=== PATIENT | female | born 1970 | race Caucasian/White ===

== ENCOUNTER → 2017-03-06 | Outpatient (CLI) | payer MEDICAID, SELFPAY | PROVIDERS: Family Provider Internal Medicine Adolescent Medicine; Referring Provider Internal Medicine; Visit Provider Internal Medicine | DX: I25.10 Atherosclerotic heart disease of native coronary artery without angina pectoris (principal); I10 Essential (primary) hypertension; E78.5 Hyperlipidemia, unspecified; K21.9 Gastro-esophageal reflux disease without esophagitis | CPT/HCPCS: 36415; 80061; 80076; 94060; 94640; 94727; 94729 ==

== ENCOUNTER → 2017-09-07 06:55 | Outpatient (CLI) | payer MEDICAID, SELFPAY ==
--- NOTE | 2017-09-07 07:00 | CA_ITS ---
PROCEDURE: 2-D M-mode and color Doppler study INDICATIONS FOR THE TEST: Chest pain + COPD Heart Murmur Tobacco Smoking+ Palpitations Fatigue Syncope Edema Hypertension+Diabetes Mellitus Rheumatic Fever SOB+HOGAN Obesity Hyperlipidemia+ Family History HD Additional History CAD, GERD, ABN EKG, CATH PATIENT INFORMATION HEIGHT: 64 WEIGHT:207 GENDER: Female B/P:117/60 2-D/M-MODE INTERPRETATION: 2-D MEASUREMENTS OBSERVED VALUES IN CMS Right Ventricular Dimension (RVDd) 1.9 Interventricular Septum (Thickness)(IVsd) 1.3 Left Ventricular Internal Dimensions(LVIDd) 5.0 Left Ventricular Posterior Wall (Thickness)(LVPWd) 1.2 Aortic Root 3.0 Aortic Cusp Separation 2.0 Left Atrial Dimensions (LAD) 3.5 2D 1. Left atrium is mildly enlarged, left ventricle is normal size, mild concentric left ventricular hypertrophy, visually estimated ejection fraction 55% with no obvious regional wall motion abnormality. 2. The right atrium and right ventricle are normal size and contractility. 3. The aortic valve is minimally thickened and fibrosed. 4. The mitral and tricuspid valve are structurally normal. 5. The pulmonic valve is poorly visualized. 6. No significant pericardial effusion noted. DOPPLER INTERROGATION: Doppler interrogation of the aortic, mitral and tricuspid valvular presence of moderate to severe, mild mitral and tricuspid regurgitation. Tricuspid regurgitant jet velocity is insufficient for calculation of the right ventricular systolic pressure, diastolic parameters are inconclusive. CONCLUSION: 1. Mildly enlarged left atrium, normal left ventricular size, mild concentric left ventricular hypertrophy, visually estimated ejection fraction 55% with no obvious regional wall motion abnormality, diastolic parameters are inconclusive. 2. Thickened and calcified aortic valve without aortic stenosis, there is moderate to severe aortic insufficiency present, if clinically indicated transesophageal echocardiogram is recommended for further evaluation. 3. Mild mitral and tricuspid regurgitation 4. No significant pericardial effusion noted.
--- NOTE | 2017-09-07 07:00 | NM_ITS ---
History and Indications: Hypertension, hyperlipidemia, aortic insufficiency, shortness of breath. Procedure: Patient exercised on Corby protocol 9 minutes and 31 seconds, resting heart rate was 62 bpm resting blood pressure 121/53, with exercise maximum heart rate achieved was 80 bpm which is equal to 68% of the maximum predicted heart rate and a blood pressure was 180/84. Test was started due to shortness of breath. Patient has adequate exercise capacity achieved 7mets of workload on treadmill, the blood pressure response to exercise was adequate. Patient did not achieve the target heart rate. Electrocardiogram: Resting electrocardiogram showed sinus rhythm, with exercise there is less than 1.[address] segment depression noted from the baseline EKG. The EKG portion of the exercise Myoview is nondiagnostic as patient did not achieve the target heart rate. Cardiac stress and resting SPECT images: Cardiac stress and rest SPECT images were obtained using technetium 99 Myoview 32.2 mCi at stress and 10.4 mCi at rest, gated SPECT further analysis of segmental wall motion and calculation of the ejection fraction also done. Cardiac stress and rest images show uniform myocardial activity without any segmental perfusion abnormality, computer derived ejection fraction is 63% with no obvious regional wall motion abnormality. Right ventricle is normal size and contractility. Conclusion: 1. The EKG portion of the exercise Myoview is nondiagnostic as patient did not achieve the target heart rate. Patient has adequate exercise capacity achieved 7mets of workload on treadmill, the blood pressure response to exercise was adequate. Test was stopped due to shortness of breath. 2. No obvious scintigraphic evidence of reversible ischemia seen, computer derived ejection fraction is 63% with no obvious regional wall motion abnormality, right ventricle is normal size and contractility.
--- NOTE | 2017-09-07 10:09 | HMH.ITSHM ---
cloidogrel metoprolol atorvastatin amlodipine pantoprazole aspirin isosorbide
== END ==
PROVIDERS: Family Provider Internal Medicine Adolescent Medicine; PCP Internal Medicine Adolescent Medicine; Visit Provider Internal Medicine
DX: R07.9 Chest pain, unspecified (principal); R06.00 Dyspnea, unspecified; I11.9 Hypertensive heart disease without heart failure; I44.0 Atrioventricular block, first degree; R53.83 Other fatigue
CPT/HCPCS: 78452; 93017; 93306; A9502

== ENCOUNTER → 2017-11-29 13:13 | Outpatient (CLI) | payer MEDICAID, SELFPAY ==
[2017-11-29 15:26] LABS: Alanine Aminotransferase 19 U/L (12-78); Albumin Level 3.4 gm/dL (3.4-5.0); Alkaline Phosphatase 136 U/L (46-116); Anion Gap 13.7 mEq/L (5-15); Aspartate Amino Transferase 6 U/L (15-37); Bilirubin,Total 0.3 mg/dL (0.2-1.0); Blood Urea Nitrogen 12 mg/dL (7-18); Calcium 8.7 mg/dL (8.5-10.1); Carbon Dioxide 25 mmol/L (21.0-32.0); Chloride 109 mmol/L (98-107); Chol/HDL Ratio 4.2 (1-3.5); Cholesterol 109 mg/dL (140-200); Creatinine,Serum 0.69 mg/dL (0.55-1.02); Estimated Glomerular Filt Rate 91 ml/min (>60); GFR (African American) 110 ML/MIN (>60); Globulin 3.3 gm/dl (1.3-3.2); Glucose 103 mg/dL (74-106); HDL Cholesterol 26 mg/dL (29-89); LDL Cholesterol 61 mg/dL (0-130); Potassium 3.7 mmoL/L (3.5-5.1); Sodium 144 mmol/L (136-145); Total Protein,Serum 6.7 gm/dL (6.4-8.2); Triglycerides 111 mg/dL (30-200); VLDL Cholesterol 22 mg/dL (0-40)
--- NOTE | 2017-11-29 15:42 | MM_ITS ---
MM Dig screening mamm BI w/CAD CAD Screening COMPARISON: Analog mammograms 01/14/2009 INDICATION: There is a history of breast cancer patient's 2 maternal aunts. TECHNIQUE: Standard CC and MLO images were obtained. R2 CAD reviewed. FINDINGS: Moderate scattered fibroglandular densities are seen throughout both breasts. There is no suspicious lesion and there are no suspicious microcalcifications. IMPRESSION: Fibrofatty parenchyma with no suspicious lesion seen BI-RADS Category: 1 Negative RECOMMENDED FOLLOW-UP: 1YR - 1 YEAR FOLLOW-UP (A letter has been sent to the patient regarding results of the study.)
== END ==
PROVIDERS: Family Provider Internal Medicine Adolescent Medicine; PCP Internal Medicine Adolescent Medicine; Visit Provider Nurse Practitioner Family
DX: Z12.31 Encounter for screening mammogram for malignant neoplasm of breast (principal); I10 Essential (primary) hypertension; E78.5 Hyperlipidemia, unspecified
CPT/HCPCS: 36415; 77067; 80053; 80061

== ENCOUNTER → 2018-05-22 11:13 | Outpatient (CLI) | payer MEDICAID, SELFPAY ==
[2018-05-22 12:13] LABS: Basophils # 0.1 K/mm3 (0-0.2); Basophils % 1.2 % (0.1-2.0); Eosinophils # 0.3 K/mm3 (0.0-0.4); Eosinophils % 2.6 % (0.1-12.0); Hematocrit 40.9 % (37.0-47.0); Hemoglobin 13.4 g/dL (12.2-16.2); Lymphocytes # 3.2 K/mm3 (0.7-4.5); Lymphocytes % 29.1 % (10-50); Mean Corpuscular HGB Conc 32.7 g/dL (31.8-35.4); Mean Corpuscular Hemoglobin 29.8 pg (27.0-31.2); Mean Corpuscular Volume 91.3 fl (81-99); Mean Platelet Volume 7.4 fl (7.4-10.4); Monocytes # 0.6 K/mm3 (0.1-1.0); Monocytes % 5.5 % (1.7-9.3); Neutrophils # 6.7 K/mm3 (1.8-7.8); Neutrophils % 61.6 % (37.0-80.0); Platelet Count 431 K/mm3 (142-424); Red Blood Count 4.48 M/mm3 (4.20-5.40); Red Cell Distribution Width 14.7 % (11.5-17.5)
[2018-05-22 13:01] LABS: Chol/HDL Ratio 4.3 (1-3.5); Cholesterol 142 mg/dL (140-200); HDL Cholesterol 33 mg/dL (29-89); LDL Cholesterol 86 mg/dL (0-130); Triglycerides 116 mg/dL (30-200); VLDL Cholesterol 23 mg/dL (0-40)
== END ==
PROVIDERS: Visit Provider Nurse Practitioner Family
DX: Z00.00 Encounter for general adult medical examination without abnormal findings (principal); I25.10 Atherosclerotic heart disease of native coronary artery without angina pectoris; I10 Essential (primary) hypertension; E78.5 Hyperlipidemia, unspecified
CPT/HCPCS: 36415; 80061; 85025

== ENCOUNTER → 2019-12-17 08:36 | Outpatient (CLI) | payer OTHER, SELFPAY ==
--- NOTE | 2019-12-17 08:36 | US_ITS ---
PROCEDURE: US TRANSVAGINAL CLINICAL INDICATION: US T/V- Pelvic Pain COMPARISON: No exams were available for comparison FINDINGS: UTERUS: 8cm x 7cmx 6cm with a combined endometrial thickness of 6.7mm LEFT OVARY: [id number] with a volume of 8.9ml. RIGHT OVARY: [id number] with a volume of 1.8ml. The uterus is retroverted. Endometrial thickness is 7 mm. A 2 cm fibroid is present along the uterine fundus posteriorly. An additional fibroid is noted along the posterior aspect of the uterus measuring 4.5 cm. There is a 2 cm left ovarian cyst. No cul-de-sac fluid. IMPRESSION: Uterine fibroids. Dictated by: Lucien Norton MD 12/17/2019 17:01 Lucien Norton MD in OV 12/17/2019 17:01
== END ==
PROVIDERS: PCP Family Medicine; Visit Provider Obstetrics & Gynecology
DX: R10.2 Pelvic and perineal pain (principal)
CPT/HCPCS: 76830

== ENCOUNTER → 2020-01-14 10:11 | Outpatient (CLI) | payer OTHER, SELFPAY ==
[2020-01-14 10:47] LABS: Basophils # 0.1 K/mm3 (0-0.2); Basophils % 0.7 % (0.1-2.0); Eosinophils # 0.3 K/mm3 (0.0-0.4); Eosinophils % 2.5 % (0.1-12.0); Hematocrit 40.8 % (37.0-47.0); Hemoglobin 12.6 g/dL (12.2-16.2); Lymphocytes # 2.7 K/mm3 (0.7-4.5); Mean Corpuscular HGB Conc 30.8 g/dL (31.8-35.4); Mean Corpuscular Hemoglobin 28.2 pg (27.0-31.2); Mean Corpuscular Volume 91.5 fl (81-99); Mean Platelet Volume 7.7 fl (7.4-10.4); Monocytes # 0.5 K/mm3 (0.1-1.0); Monocytes % 3.6 % (1.7-9.3); Neutrophils # 9.4 K/mm3 (1.8-7.8); Neutrophils % 72.2 % (37.0-80.0); Platelet Count 384 K/mm3 (142-424); Red Blood Count 4.46 M/mm3 (4.20-5.40); Red Cell Distribution Width 15.2 % (11.5-17.5)
[2020-01-14 11:52] LABS: Alanine Aminotransferase 17 U/L (12-78); Albumin Level 3.8 g/dl (3.5-5.0); Albumin/Globulin Ratio 1.4 (1.1-1.8); Alkaline Phosphatase 125 U/L (38-126); Anion Gap 10.3 mEq/L (5-15); Aspartate Amino Transferase 20 U/L (14-36); Bilirubin,Total 0.3 mg/dl (0.2-1.3); Blood Urea Nitrogen 16 mg/dl (7-17); Calcium 9.1 mg/dl (8.4-10.2); Carbon Dioxide 26 mmol/L (22.0-30.0); Chloride 110 mmol/L (98-107); Estimated Glomerular Filt Rate 89 ml/min (>60); GFR (African American) 108 ML/MIN (>60); Globulin 2.8 g/dL (1.3-3.2); Glucose 113 mg/dl (74-100); Potassium 4.3 mmoL/L (3.5-5.1); Sodium 142 mmol/L (136-145); Total Protein,Serum 6.6 g/dl (6.3-8.2)
[2020-01-14 15:10] LABS: Coronavirus 19 IgG Antibody Negative (Negative); Coronavirus 19 IgM Antibody Negative (Negative)
[2020-01-14 20:35] LABS: Urine Pregnancy, HCG Qual. Negative (Negative)
[2020-01-14 20:38] LABS: Amphetamine/Metha Screen,Urine Negative ng/ml (<1000); Barbiturates Screen,Urine Negative ng/ml (<200)
[2020-01-14 20:39] LABS: Benzodiazepines Screen,Urine Negative ng/ml (<200)
[2020-01-14 20:40] LABS: Cannabinoid Screen,Urine Negative ng/ml (<50); Cocaine Screen,Urine Negative ng/ml (<300)
[2020-01-14 20:41] LABS: Methadone Screen,Urine Negative ng/ml (<300)
[2020-01-14 20:42] LABS: Opiate Screen,Urine Negative ng/ml (<300); Phencyclidine Screen,Urine Negative ng/ml (<25)
== END ==
PROVIDERS: Visit Provider Obstetrics & Gynecology
DX: Z01.818 Encounter for other preprocedural examination (principal)
CPT/HCPCS: 36415; 80053; 80305; 81025; 85025; 86328

== ENCOUNTER 2020-01-16 09:09 | Inpatient (IN) | payer OTHER, SELFPAY ==
[2020-01-15 10:59] VITALS: BMI 33.3
[2020-01-16] VITALS (28 sets, daily range): BP systolic 82–132; BP diastolic 38–83; PULSE 60–82; RESP 13–20; TEMP 36.1–43; O2SAT 89–97
[2020-01-16 10:00] LABS: POC Glucose,Bedside 124 (70-110)
--- NOTE | 2020-01-16 11:45 | HMH.ANESCL ---
[facility] Anesthesia Checklist - Patient Identification Patient Identification: Arm Band, Verbal (Name & ) - Structural Data Admitted From: Home Planned Operative Procedure/s: JELLY, possible BSO Consent for Planned Operative Procedure(s) Verified: Yes Verified Documents: Surgical Consent, History and Physical - NPO Status Verified Time NPO: 00:00 - Chart Verification Results Verified: CBC, BMP - Additional verifications Fingerstick Blood Glucose: 124 Patient : No Anesthesia Reactions: No Hx Blood Transfusions: No Blood Transfusion Reaction: No - Airway Assessment C-Spine Mobility Assessed: Yes (MP 2, TMD 3, full neck ROM) TMJ Mobility Assessed: Yes Dentition: Edentulous - Neurological Assessment Level of Consciousness: Awake, Alert, Appropriate, Follows Commands Hx Seizures: No Numbness or tingling in extremities: No - Anesthesia Plan Anesthesia Risk discussed: Yes Anesthesia Plan: Verified ASA Class: III Anesthesia Type: General [facility] History I have reviewed the patient's past medical history: Yes Medical History: Reports:: Anxiety, Cancer (skin), Depression, Gastroesophageal Reflux Disease(GERD), Hyperlipidemia, Hypertension, Valvular Heart Disease Denies:: Diabetes Mellitus Type 1, Diabetes Mellitus Type 2, Internal Pacemaker, MRSA, Seizures *Have you ever received a pneumonia vaccine?: No *Have you received a flu vaccine this season?: No Other Medical History: Reports: Arthritis, Hypothyroidism. Denies: Blood Transfusion Reaction Comment:: Angina Anesthesia experience/problems:: No prior complications Other Surgeries: Yes: Cardiac Catheterization, Tubal Ligation, Other. No: Pacemaker Amputation: No Fractures: No - *Social History Last grade of school completed: GED Smoking Status: Current every day smoker Tobacco Type: cigarettes # Packs/Day (cigarettes): 1 #Yrs smoked (if former smoker): 33 Alcohol Intake: never Alcohol Intake Frequency:: other Substance Use Type: denies use *Occupational Status:: employed Housing: house *Travel in the last 8 weeks: None - Psychiatric History Pschychiatric History:: Reports:: Depression Family Hx:: Coronary Artery Disease, Heart Attack, Cancer, Diabetes, Thyroid Disorder, Stroke, Hypertension, Hyperlipidemia, Asthma, Alcoholism, Substance abuse
--- NOTE | 2020-01-16 12:58 | HMH.PHAINT ---
MEDICATION RECONCILIATION COMPLETED ON PATIENT USING EXTERNAL FILL HISTORY FROM PHARMACY. -HENRIQUE TYLER, KINGD
--- NOTE | 2020-01-16 14:26 | P.PN_ITS ---
[facility] Anesthesia Record Part I Intake, IV Amount: 1,300 Estimated blood loss (mL): 200 Urine output (mL): 200 Blood Products used (#): none Blood Pressure: 112/83 SaO2: 92 Pulse Rate: 71 Respiratory Rate: 14 Temperature: 98.8 F Patient is:: Awake, Drowsy, Stable Stable to PACU at:: 14:22
--- NOTE | 2020-01-16 15:20 | HMH.OPNOTE ---
Date of procedure: 01/16/20 Pre-op Diagnosis:: 1. Pelvic pain 2. Heavy menstrual bleeding 3. Enlarged uterus 4. Uterine fibroid Post-op Diagnosis:: same Procedure performed:: Abdominal supracervical hysterectomy Surgeon:: Sheryl Temple MD Ground Support Equipment Mechanic(s):: Lorna Yates DISTRICT TRAFFIC CHIEF:: Darron Flor Anesthesia: GETA Estimated blood loss (mL): 200 Operative findings:: moderate pelvic adhesions enlarged uterus normal fallopian tubes and ovaries Operative note:: The patient was taken to the operating room and general anesthesia was administered without difficulty. She was prepped and draped in the supine position. A Pfannenstiel skin incision was made approximately 2 cm above the pubic symphysis with a scalpel and carried down to the underlying layer of fascia. The fascia was incised in the midline and extended laterally sharply. The rectus muscles were sharply dissected off the fascia and in the midline. The peritoneum was turned and sharply, with good visualization of the underlying structures. The peritoneal incision was extended bluntly. A survey of the patient's pelvis and abdomen revealed moderate adhesions extending between bowel, uterus, ovaries and pelvic sidewall. Approximately 20 minutes was spent in dissection of adhesions before retractor was able to be placed. At this time, the patient was placed in Trendelenburg and a [place] retractor was placed in the abdomen; the bowel was packed with moist laparotomy sponges. A double tooth tenaculum was placed on the uterine fundus and the uterus was elevated out of the pelvis. No fibroids or other visible uterine lesions were noted. The round ligaments were identified and transected and suture-ligated. The anterior lip of the broad ligament was dissected medially on both sides and the bladder flap was created digitally. The posterior leaf of the broad ligament was dissected until the ureters were able to be identified on either side and noted to be free of the forthcoming adnexal pedicles. Infundibulopelvic ligaments were doubly clamped transected and suture ligated on either side, medial to the ovaries, with excellent hemostasis noted. The uterine arteries were skeletonized on either side, and were clamped, transected and suture ligated with excellent hemostasis. The bladder flap was further bluntly dissected off the lower uterine segment with excellent hemostasis and without injury to the bladder. Several additional rounds of clamp placement was made on either side, and eventually the uterus was amputated from the cervix. The cervix was oversewn with interrupted 0-vicryl. The pelvis was irrigated with warm sterile water, and cleared of all clot and debris. All pedicles were reexamined and remained hemostatic. All instruments were removed from the patient's abdomen. The peritoneum was closed with 2-0 Vicryl in a running fashion. The fascia was closed with 0 Vicryl in a running fashion. The skin was closed with desean. The patient tolerated the procedure well; sponge/lap/needle and instrument counts were correct ?2. She was taken to the recovery room awake in stable condition. Estimated blood loss: 200cc. Condition: stable Disposition: PACU Specimens:: uterus Complications:: None
--- NOTE | 2020-01-16 15:26 | P.CONPHA_ITS ---
[facility] Pharmacy VTE Monitoring - Patient Demographics Admission date: 01/16/20 Report Date: 01/16/20 Time: 15:26 Allergies/Adverse Reactions: Patient Allergies Sulfa (Sulfonamide Antibiotics) [SULFA (SULFONAMIDE ANTIBIOTICS)] Allergy (Intermediate, Verified 01/16/20 09:50) hives; from head to toe Height: 1.65 m Weight: 90.718 kg - Prophylaxis VTE Prophylaxis Ordered?: Yes Types of VTE Prophylaxis: IPCS Thigh High, Pharmacological Pharmacologic Type: Enoxaparin
--- NOTE | 2020-01-16 16:30 | PC.NURSE ---
pt sleeping soundly, awakens easily. encouraged to use IS with RN at this time
[2020-01-16 16:37] LABS: Hematocrit 36.2 % (37.0-47.0); Hemoglobin 12.1 g/dL (12.2-16.2)
[2020-01-16 17:25] LABS: Microscopic, Urine URINE MICROSCOPIC (MICROSCOPIC)
[2020-01-16 17:32] LABS: Appearance,Urine CLEAR (Clear); Bilirubin,Urine Negative (Negative); Blood, Urine Negative (Negative); Color,Urine YELLOW (Yellow); Glucose,Urine (UA) Negative (Negative); Ketones,Urine Negative (Negative); Leukocyte Esterase,Urine Negative (Negative); Nitrate,Urine Negative (Negative); Protein,Urine Negative (Negative); Specific Gravity, Urine 1.025 (1.005-1.030); Urobilinogen,Urine 0.2 EU/dl (0.2)
[2020-01-16 17:51] LABS: Bacteria,Urine Trace /lpf; Mucus,Urine 2+ /lpf; Squamous Epithelial Cell,Urine Occasional #/hpf (0-5)
--- NOTE | 2020-01-16 18:13 | SUR.PHASEI ---
Patient entered PACU at 1422 with BP of 112/83; pre op BP was 122/66. Patient's O2 saturation was 96% in pre op, in PACU patient's O2 saturation at a high of 92% on 5L O2. Patient switched to simple mask, did not improve O2 saturation. Head of bed had been raised to 90 degree position with simple mask, no significant increase in O2. At 1427 patient's BP decreased to 94/42 and continued to decrease until 1440 when it was 87/47, then at 1452 it was 85/41. During this time the BP cuff was moved to different parts of the left arm and then the cuff size was increased. The cuffs were then moved to the right arm as well. The fluids were opened up; the patient is not a CHF patient, this did not improve the BP. The head of the bed was lowered with the fluids running open, this did not increase the BP. The patient was positioned in several different positions,but this did not make any significant difference in the BP levels. At 1510 the GRASS FARMER that was taking care of this patient was called by the SCREENER AND BLENDER OPERATOR. The scenario was explained, including the fact that the patient was alert and oriented. the GRASS FARMER stated that the patient should be transported up to OB at this time. At 1518 report was called to OB, but the OB RN did not want to accept this patient r/t the BP and O2 saturation although the GRASS FARMER was satisfied when hearing the entire situation. It was agreed between the OB and SCREENER AND BLENDER OPERATOR that a breathing treatment would be ordered. The order was given and the patient received her breathing treatment starting at 1526. After coughing a few times the patient's O2 saturation increased to 98% on the 5l, but less than five minutes later the patient's O2 had decreased to 93% on the 5L and continued to decrease to 91%. At this time the patient was introduced to the incentive spirometer and instructed on it's use. As the patient was using the spirometer, another call was placed to OB for report, at 1537. The OB RN did not want to take report again unless Dr Temple was called and she gave her consent for transfer. At 1541 Dr Temple was called by the SCREENER AND BLENDER OPERATOR for consent to transfer the patient to OB. Dr Temple stated she would order an H/H to be drawn on the floor and that the patient should be transferred at this time. Patient was transported via bed to OB at 1547.
--- NOTE | 2020-01-16 19:05 | PC.NURSE ---
REPORT RECEIVED FROM Fly NEGRON RN AT THIS TIME.
--- NOTE | 2020-01-16 20:10 | PC.NURSE ---
PT ASSESSED AT THIS TIME. BILATERAL LUNG SOUNDS CLEAR. NO EDEMA NOTED. BOWEL SOUNDS HYPOACTIVE X4 QUADS. PT STATES THAT SHE HAS NOT PASSED ANY GAS OR HAD A BM. DENIES ANY PAIN AT THIS TIME. STATES PAIN WITH MOVEMENT AND AMBULATION. PT IS SITTING UP IN CHAIR WATCHING TV. IV ABX ANCEF 1 GM STARTED AT THIS TIME. INDWELLING CATHETER BAG EMPTIED AT THIS TIME WITH 1500 ML OUT OF CLEAR STRAW COLOR URINE. PT DENIES ANY FURTHER NEEDS AT THIS TIME. WILL CONTINUE TO OBSERVE.
--- NOTE | 2020-01-16 21:18 | PC.NURSE ---
PT GIVEN SCHEDULED MEDICATIONS AT THIS TIME. LOVENOX ADMINISTERED IN LLQ OF ABD. PT TOLERATED WELL. REFILLED ICE PITCHER AND GIVEN JELLO AT THIS TIME WILL CONTINUE TO OBSERVE.
--- NOTE | 2020-01-16 21:43 | P.PN_ITS ---
[facility] Anesthesia Record Part II Discharge Time: 15:26 Destination: Obstetric PACU nurse assessment reviewed?: Yes Patient Condition:: Good Anesthesia Complications:: None Swallowing reflex intact?: Yes Cyanosis?: No Blood Pressure: 90/42 Pulse Rate: 69 Temperature: 97.7 F Mental Status: Alert & Oriented Pain level:: 0 Nausea and/or vomitting:: None Intake, IV Amount: 0
--- NOTE | 2020-01-16 23:22 | PC.NURSE ---
PT GIVEN POPSICLE AT THIS TIME. DENIES ANY FURTHER NEEDS. WILL CONTINUE TO OBSERVE. CATH EMPTIED AT THIS TIME 800 ML OUT
[2020-01-17] VITALS (7 sets, daily range): BP systolic 117–149; BP diastolic 53–72; PULSE 71–94; RESP 16–20; TEMP 36.5–36.9; O2SAT 93–97
--- NOTE | 2020-01-17 00:24 | PC.NURSE ---
PT UP AND AMBULATED TO BR TO BRUSH HAIR AND TEETH AT THIS TIME. PT TOLERATED AMBULATION WELL WITH STAND BY ASSIST. WILL CONTINUE TO OBSERVE.
--- NOTE | 2020-01-17 03:30 | PC.NURSE ---
PT MEDICATED PER [facility] AT THIS TIME. PT STATES PAIN 3/10 ON VERBAL SCALE R/T INCISION. PT DENIES ANY FURTHER NEEDS.
--- NOTE | 2020-01-17 04:07 | PC.NURSE ---
INDWELLING CATHETER REMOVED AT THIS TIME. PT TOLERATED WELL. 10 ML PULLED OUT OF BALLOON. 1400 OF URINE NOTED IN BAG. REASSESSED AT THIS TIME. NO CHANGES NOTE. INCISIONAL DRESSING HAS SO BREAK THROUGH BLEEDING AROUND THE BOTTOM. WILL CONTINUE TO OBSERVE.
--- NOTE | 2020-01-17 05:38 | PC.NURSE ---
PT AMBULATED TO BR AND WAS ABLE TO VOID 500 ML. SITTING UP IN CHAIR. DENIES ANY FURTHER NEEDS AT THIS TIME. WILL CONTINUE TO OBSERVE.
[2020-01-17 07:54] LABS: Basophils % 0.1 % (0.1-2.0); Hematocrit 36.4 % (37.0-47.0); Hemoglobin 12.1 g/dL (12.2-16.2); Lymphocytes # 1.3 K/mm3 (0.7-4.5); Lymphocytes % 6.8 % (10-50); Mean Corpuscular HGB Conc 33.4 g/dL (31.8-35.4); Mean Corpuscular Volume 89.9 fl (81-99); Mean Platelet Volume 7.7 fl (7.4-10.4); Monocytes # 0.8 K/mm3 (0.1-1.0); Monocytes % 4.1 % (1.7-9.3); Neutrophils # 17.4 K/mm3 (1.8-7.8); Platelet Count 347 K/mm3 (142-424); Red Blood Count 4.05 M/mm3 (4.20-5.40); Red Cell Distribution Width 15.9 % (11.5-17.5); White Blood Count 19.6 K/mm3 (4.8-10.8)
[2020-01-17 08:01] LABS: MANUAL DIFFERENTIAL MANUAL DIFFERENTIAL (MANUAL DIFF)
[2020-01-17 09:31] LABS: Lymphocytes % 11 % (10-50); Monocytes % 3 % (2-9); Neutrophils % 85 % (42-76); Platelet Estimate Normal; RBC Morphology Normal; Total Cells Counted 100
--- NOTE | 2020-01-17 09:31 | PC.NURSE ---
0915 Incision care performed at this time. Dressing removed, LTV incision with desean intact, clean and dry without any s/s infection. Incision cleaned with 1/2 strength hydrogen peroxide and sterile water, tolerated well by pt. Incision left CTE TEACHER. Pt provided with verbal education on incision care and surgical site infections, V/U.
--- NOTE | 2020-01-17 11:20 | HMH.ACPN2 ---
Internal Medicine - PN: Subj *Date: 01/17/20 *Time: 11:20 Interval history: She is doing very well. She is 1 day postop from a total abdominal hysterectomy. She feels well. Her pain is well controlled with just Toradol. She is not taking any narcotics. She denies any chest pain, calf tenderness or shortness of breath. She is voiding and eating. She is drinking and ambulating. Exam Vital signs and Labs for Last 24 Hours: Temp Pulse Resp BP Pulse Ox 98.0 F 80 16 133/61 96 01/17/20 08:00 01/17/20 08:00 01/17/20 08:00 01/17/20 08:00 01/17/20 08:00 Laboratory Results - last 24 hr 01/16/20 16:30: Hgb 12.1 L, Hct 36.2 L 01/16/20 : Urine Color Yellow, Urine Appearance Clear, Urine pH 6.0, Ur Specific Luana 1.025, Urine Protein Negative, Urine Glucose (UA) Negative, Urine Ketones Negative, Urine Blood Negative, Urine Nitrate Negative, Urine Bilirubin Negative, Urine Urobilinogen 0.2, Ur Leukocyte Esterase Negative, Urine RBC 3-5, Urine WBC 3-5, Ur Squamous Epith Cells Occasional, Urine Bacteria Trace, Urine Mucus 2+ 01/17/20 07:32: WBC 19.6 H D, RBC 4.05 L, Hgb 12.1 L, Hct 36.4 L, MCV 89.9, MCH 30.0, MCHC 33.4, RDW 15.9, Plt Count 347, MPV 7.7, Neut % (Auto) 89.0 H, Lymph % (Auto) 6.8 L, [place] % (Auto) 4.1, Eos % (Auto) 0.0 L, Baso % (Auto) 0.1, Neut # (Auto) 17.4 H, Lymph # (Auto) 1.3, [place] # (Auto) 0.8, Eos # (Auto) 0.0, Baso # (Auto) 0.0, Total Counted 100, Neutrophils % (Manual) 85 H, Band Neutrophils % 1.0, Lymphocytes % (Manual) 11, Monocytes % (Manual) 3, Platelet Estimate Normal, RBC Morphology Normal I & O for Last 24 hours: Intake & Output 01/14/20 01/15/20 01/16/20 11/07/20 11:59 11:59 11:59 11:59 Intake Total 2140 / 2140 Output Total 4850 / 4850 Balance -2710 / -2710 Weight 200 lb - Constitutional no acute distress - *Routine HEENT Exam Head: Present: normocephalic Eye: Present: EOMI, PERRL ENT: Present: mucous membranes moist - *Routine Respiratory Exam Present: CTA bilaterally. Absent: accessory muscle use - *Routine Cardiovascular Exam Present: RRR. Absent: murmur - *Routine Abdominal Exam Present: soft, normoactive bowel sounds. Absent: tenderness - *Routine Extremities Exam Absent: cyanosis, clubbing, edema - *Routine Skin Exam Present: warm. Absent: rash Assessment and Plan (1) History of tubal ligation Status: Acute Category: Surgical Code(s): Z98.51 - Tubal ligation status (2) Uterine fibroid Status: Acute Category: Medical Code(s): D25.9 - Leiomyoma of uterus, unspecified - Assessment and plan all Dx Assessment and Plan for all problems:: She is doing very well postoperatively. Her hemoglobin is stable. She is improving daily. We will plan to send her home in 48 hours.
--- NOTE | 2020-01-17 16:44 | PC.NURSE ---
1635 RN reassessment completed at this time. Pt has rested in intervals this shift, has had good pain control with scheduled IV toradol, not requesting any narcotics this shift for pain. Abdomen soft and mildly tender with BS active in all quads. Pt is tolerating a cardiac diet well with no N/V. Pt reports passing flatus. LTV incision is C/D/I, with no s/s infection. Lung sounds are diminished but CTA. No s/s respiratory distress, no SOA. SaO2 93% on room air, pt previously in mid 90's, will recheck. Productive cough continues with thin, clear sputum. Pt reports voiding without difficulty. Pt has ambulated in room several times this shift and spent majority of the shift sitting up in the chair. Pt has demonstrated correct use of incentive spirometer. IV patent and infusing LR at 50 ml/hr per MD order. Pt denies any needs/concerns at this time, bed locked and in lowest position with side rails up x2, call light within reach.
--- NOTE | 2020-01-17 18:55 | PC.NURSE ---
Pt is up to the shower, IV covered, towels and wash cloths provided to pt. Bed linens changed by staff.
--- NOTE | 2020-01-17 19:50 | PC.NURSE ---
PT INCISION IS OPEN TO AIR,JUAN RAMON INTACT,CLEANSED INCISION WITH 1/2 STRENGHT PEROXIDE AND STERILE WATER.PT TOLERATED WELL.
[2020-01-18] VITALS (7 sets, daily range): BP systolic 125–147; BP diastolic 60–75; PULSE 72–81; RESP 18–20; TEMP 36.5–37.1; O2SAT 91–96
--- NOTE | 2020-01-18 00:30 | PC.NURSE ---
PT WAS SLEEPING SOUNDLY.SATURATION LEVEL ON ROOM AIR WAS 89,HAD PT TAKE A COUPLE DEEP BREATHS AND SAT.LEVEL ONLY WENT TO 91%.2 LITERS OXYGEN APPLIED PER NASAL CANNULA AND TOLD PT WOULD COME AN CHECK SAT.LEVEL IN ABOUT 30 MINS.PT V/U
--- NOTE | 2020-01-18 01:05 | PC.NURSE ---
RECHECKED PT SATURATION LEVEL WITH 2 LITERS OF OXYGEN PER NASAL CANNULA AND IT WAS 94-95%TOLD PT WAS GOING TO LEAVE OXYGEN ON UNTIL MORNING AND SHE V/U
--- NOTE | 2020-01-18 03:45 | PC.NURSE ---
PT HAS SLEPT WELL TONIGHT,LUNGS CLEAR THROUGHOUT,RESP.EVEN AND UNLABORED,PT HAS BEEN ABLE TO ACHIEVE A LEAST 1750 ON INCENTIVE SPIROMETER.SOME COUGHING WITH USE,SHE REPORTS SHE HAS BEEN COUGHING UP SOME MUCUS.INCISION OPEN TO AIR,JUAN RAMON INTACT.NORMAL BOWEL SOUNDS X4 QUADS,PT REPORTS PASSING FLATUS AND VOIDING WITHOUT DIFF.PT AFIBRILE.MAGDA TORADOL 30MG IVP IS ALL THAT PT HAS REQUIRED TONIGHT.
--- NOTE | 2020-01-18 08:51 | HMH.ACPN2 ---
Internal Medicine - PN: Subj *Date: 01/18/20 *Time: 08:51 Interval history: She is doing well this morning. She is eating and drinking and ambulating. She is taking Toradol for pain. She denies any shortness of breath or chest pain. She denies any calf tenderness. She has not had a bowel movement. Exam Vital signs and Labs for Last 24 Hours: Temp Pulse Resp BP Pulse Ox 97.7 F 81 18 138/68 95 01/18/20 08:00 01/18/20 08:00 01/18/20 08:00 01/18/20 08:00 01/18/20 08:00 Laboratory Results - last 24 hr 01/17/20 07:32: Total Counted 100, Neutrophils % (Manual) 85 H, Band Neutrophils % 1.0, Lymphocytes % (Manual) 11, Monocytes % (Manual) 3, Platelet Estimate Normal, RBC Morphology Normal I & O for Last 24 hours: Intake & Output 01/15/20 01/16/20 01/17/20 01/18/20 11:59 11:59 11:59 11:59 Intake Total 2140 / 2140 548 / 548 Output Total 4850 / 4850 1600 / 1600 Balance -2710 / -2710 -1052 / -1052 Weight 200 lb - Constitutional no acute distress - *Routine HEENT Exam Head: Present: normocephalic Eye: Present: EOMI, PERRL ENT: Present: mucous membranes moist - *Routine Abdominal Exam Present: soft, normoactive bowel sounds. Absent: tenderness Comments: Her incision is clean and dry. Assessment and Plan (1) History of tubal ligation Status: Acute Category: Surgical Code(s): Z98.51 - Tubal ligation status (2) Uterine fibroid Status: Acute Category: Medical Code(s): D25.9 - Leiomyoma of uterus, unspecified - Assessment and plan all Dx Assessment and Plan for all problems:: She is doing very well this morning. She says that she is urinating profusely and I told her we would slow her IV down to 25 cc an hour. She will be seen by Dr. Temple in the morning and I suspect she should be able to go home tomorrow.
--- NOTE | 2020-01-18 11:23 | PC.NURSE ---
0815 Incision care performed at time of tiedown operator. LTV incision noted with desean intact, clean and dry without any s/s infection. Incision cleaned with 1/2 strength hydrogen peroxide and sterile water, tolerated well by pt. Incision left RIBBON HAND.
--- NOTE | 2020-01-18 16:07 | PC.NURSE ---
1600 RN reassessment completed at this time. Pain has been well controlled this shift. Pt only taking scheduled toradol for pain management, reports pain as a 2 on a 0-10 scale at this time which is tolerable for her. LTV incision is KRISTINE with desean intact, no s/s infection. Lung sounds CTA but diminished, pt continues to report productive cough with thin mucus. No SOA, no s/s respiratory distress. Pt has been educated on importance of using incentive spirometer, v/u. Abd soft and nontender with BS active in all quads. Pt reports passing flatus this shift, no BM. Pt reports voiding without difficulty. Pt is tolerating a cardiac diet well, no N/V. VSS. Pt sitting up in bed at this time watching television and coloring, pt denies any needs/concerns. Will continue to monitor.
[2020-01-19] VITALS: BP 147/76; PULSE 71; RESP 18; TEMP 37.1; O2SAT 96
[2020-01-19 03:25] VITALS: BP 146/75; PULSE 66; RESP 18; TEMP 37.1; O2SAT 96
--- NOTE | 2020-01-19 03:44 | PC.NURSE ---
NO ACUTE CHANGES FROM PREVIOUS ASSESSMENT.LUNGS CLEAR TO ASCULTATE.NORMAL BOWEL SOUND X4 QUADS,PT REPORTS PASSING FLATUS AND VOIDING OK.INCISION OPEN TO AIR,JUAN RAMON INTACT.AFIBRILE.PT HAS NOT REQUIRED ANY PAIN MEDICINE.SHE HAS BEEN GETTING MAGDA DOSE OF TORADOL.SHE HAS SLEPT OFF AND ON THROUGHTOUT THE NIGHT
[2020-01-19 04:23] VITALS: BMI 35.9
[2020-01-19 08:10] VITALS: BP 137/72; PULSE 74; RESP 18; TEMP 36.7; O2SAT 99
--- NOTE | 2020-01-19 08:33 | PC.NURSE ---
0810 Incision care completed at time of night time babysitter. LTV is GATE SERVICES SUPERVISOR with desean intact, no s/s infection. Incision cleaned with 1/2 strength hydrogen peroxide and sterile water, tolerated well by pt.
--- NOTE | 2020-01-19 09:17 | HMH.DCSUM ---
General - General Admission date:: 01/16/20 Discharge date: 01/19/20 Hospital Course Hospital Course: Admitted for abdominal hysterectomy Postop course uneventful Progressed to regular diet Ambulating and voiding without difficulty Pain has been controlled with only NSAIDs and Tylenol Ready for discharge on POD #3 Objective Vital signs: Temp Pulse Resp BP Pulse Ox 98.0 F 74 18 137/72 99 01/19/20 08:10 01/19/20 08:10 01/19/20 08:10 01/19/20 08:10 01/19/20 08:10 Narrative: CONSTITUTIONAL: no acute distress HEENT: mucous membranes moist PULMONARY: breathing unlabored without audible wheezes CV: no tachycardia or visible JVD; normal LE peripheral pulses ABD: soft, ND; appropriately tender but no rebound/guarding SKIN: incision well approximated with no drainage, erythema or induration EXT: no edema LEs NEURO: alert/oriented, no altered mental status PSYCH: appropriate mood and demeanor without anxiety/depression DS: Diagnosis - Discharge Diagnosis (1) Uterine fibroid Status: Acute (2) History of tubal ligation Status: Acute (3) S/P hysterectomy Status: Acute Discharge Plan - Patient Discharge Instructions ACTIVITY: Continue current activity DIET: regular diet Additional Instructions: Resume Plavix and Aspirin 1 week postop - Follow up Plan Disposition: Home, [facility] Medications: Home Medications Medication Instructions Recorded Confirmed Type aspirin 81 mg tablet,delayed 81 mg PO DAILY /12/01/15/20 History release levothyroxine 50 mcg tablet 50 mcg PO DAILY 12/12/19 01/15/20 History Amlodipine Besylate [Amlodipine 10 mg PO DAILY 01/15/20 01/15/20 History 10mg Tab] Atorvastatin Calcium [Lipitor 80mg 80 mg PO DAILY 01/15/20 01/15/20 History Tablet*] Clopidogrel Bisulfate [Plavix 75mg 75 mg PO DAILY 01/15/20 01/15/20 History Tab] Isosorbide Mononitrate [Imdur 60mg 60 mg PO DAILY 01/15/20 01/16/20 History ER tablet] Metoprolol Tartrate 50 mg PO BID 01/15/20 01/15/20 History Pantoprazole Sodium [Protonix 40mg 40 mg PO HS 01/15/20 01/16/20 History tablet] Trazodone HCl 100 mg PO HS 01/15/20 01/16/20 History Venlafaxine HCl [Effexor XR 150mg] 150 mg PO DAILY 01/15/20 01/15/20 History Ketorolac Tromethamine [Toradol 10 mg PO Q6H #30 tab 01/19/20 Rx 10mg tablet] Oxycodone HCl [OxyIR 5mg tablet] 5 mg PO Q6 PRN #24 tablet 01/19/20 Rx Prescriptions/Medication Reconciliation: New Oxycodone HCl [OxyIR 5mg tablet] 5 mg PO Q6 PRN #24 tablet PRN Reason: Moderate To Severe Pain Ketorolac Tromethamine [Toradol 10mg tablet] 10 mg PO Q6H #30 tab Continued aspirin 81 mg tablet,delayed release 81 mg PO DAILY levothyroxine 50 mcg tablet 50 mcg PO DAILY Pantoprazole Sodium [Protonix 40mg tablet] 40 mg PO HS Metoprolol Tartrate 50 mg PO BID Isosorbide Mononitrate [Imdur 60mg ER tablet] 60 mg PO DAILY Venlafaxine HCl [Effexor XR 150mg] 150 mg PO DAILY Trazodone HCl 100 mg PO HS Clopidogrel Bisulfate [Plavix 75mg Tab] 75 mg PO DAILY Atorvastatin Calcium [Lipitor 80mg Tablet*] 80 mg PO DAILY Amlodipine Besylate [Amlodipine 10mg Tab] 10 mg PO DAILY - Problem Reconciliation Problems Reviewed?: Yes
--- NOTE | 2020-01-19 09:50 | PC.NURSE ---
[id number] Discharge education provided to pt, questions encouraged and answered. Pt is aware of follow up appointment with Dr. Temple.
--- NOTE | 2020-01-19 10:00 | PC.NURSE ---
1000 Pt escorted out of department via wheelchair to private vehicle for discharge home. Mask worn per COVID-19 policy.
== END 2020-01-19 10:00 | disposition home or self-care (01) | DRG 743 ==
LOC: OB 09:11
PROVIDERS: Admitting Provider Obstetrics & Gynecology; PCP Family Medicine; Visit Provider Obstetrics & Gynecology
PROC: 0UT90ZZ Resection of Uterus, Open Approach (ICD-10-PCS; CPT 58150; principal; 2020-01-16 10:45)
DX: D25.9 Leiomyoma of uterus, unspecified (principal); N80.0 Endometriosis of uterus; Z79.02 Long term (current) use of antithrombotics/antiplatelets; I11.9 Hypertensive heart disease without heart failure; I25.10 Atherosclerotic heart disease of native coronary artery without angina pectoris; I44.0 Atrioventricular block, first degree; E78.5 Hyperlipidemia, unspecified; Z72.0 Tobacco use; E03.9 Hypothyroidism, unspecified; Z88.2 Allergy status to sulfonamides; Z79.82 Long term (current) use of aspirin; Z79.899 Other long term (current) drug therapy
CPT/HCPCS: 58180; 36415; 80053; 80305; 81001; 81025; 82962; 85007; 85014; 85018; 85025; 86328; 94640; 94760; 94761; 96372; 96374; J2405

== ENCOUNTER → 2020-07-13 12:56 | Outpatient (CLI) | payer OTHER, SELFPAY ==
--- NOTE | 2020-07-13 12:57 | CA_ITS ---
APPROVED REPORT [employer] Developer: JEROME Laterality: Bilateral Study Quality: Good Indications: carotid bruit, CAD hx-AK Risk Factors Hypertension: CAD, Smoking Doppler Spectral Velocity Analysis ECA (R) 151.80/30.80 cm/s ECA (L) 136.90/15.00 cm/s dICA (R) 109.80/32.70 cm/s dICA (L) 98.80/31.40 cm/s Piedad (R) 88.60/25.00 cm/s Piedad (L) 91.30/29.90 cm/s pICA (R) 95.40/18.30 cm/s pICA (L) 74.10/22.40 cm/s dCCA (R) 78.00/17.30 cm/s dCCA (L) 70.00/18.20 cm/s pCCA (R) 103.70/23.50 cm/s pCCA (L) 121.40/27.90 cm/s Vert (R) 56.80/16.40 cm/s Vert (L) 62.10/18.70 cm/s ICA/CCA 1.39 ICA/CCA 1.41 Findings Duplex evaluation demonstrates stenosis of the right proximal internal carotid artery in the range of 20-49% with PSV <140 cm/sec, EDV <100 cm/sec, and IC/CC Ratio <4.0.Duplex evaluation demonstrates stenosis of the left proximal internal carotid artery in the range of 20-49% with PSV <140 cm/sec, EDV <100 cm/sec, and IC/CC Ratio <4.0. Duplex evaluation demonstrates antegrade flow of the bilateral Vertebral Arteries. Conclusion Duplex evaluation demonstrates stenosis of the right proximal internal carotid artery in the range of 20-49% with PSV <140 cm/sec, EDV <100 cm/sec, and IC/CC Ratio <4.0.Duplex evaluation demonstrates stenosis of the left proximal internal carotid artery in the range of 20-49% with PSV <140 cm/sec, EDV <100 cm/sec, and IC/CC Ratio <4.0. Duplex evaluation demonstrates antegrade flow of the bilateral Vertebral Arteries. Electronically signed by : Lucien Norton MD 07/13/2020 17:28:16
--- NOTE | 2020-07-13 12:57 | CA_ITS ---
APPROVED REPORT EXAM: Comprehensive 2D, Doppler, and color-flow Echocardiogram [facility]: Mary Fisher CRT Ht: 5 ft 5 in Wt: 203lbs BSA: 1.99 HR: 68 bpm BP: 166/78 mmHg Indications: SOA, CAD, Mumur, smoker, HTN,HLD, GERD 2D Dimensions LVOT 1.98 cm (M/F) 1.5-2.5 LA Volume 58.00 mL LA Volume Index 29.10 mL/m2 (M/F) 16-34 M-Mode Dimensions RVDd 2.58 cm (0.9-2.6) LA Diam 3.52 cm (1.9-4.0) LVDd 4.51 cm (3.5-5.7) Ao Diam 2.83 cm (2.0-3.7) LVDs 3.08 cm (3.5-5.7) IVSd 1.47 cm (0.6-1.1) PWd 0.64 cm (0.6-1.1) EF (Teich) 59.80% FS 31.70% EDV (Teich) 92.90 mL TAPSE 2.22 (<1.7) ESV (Teich) 37.30 mL LV Diastology E Decel Time 150.00 (160-240 msec) E/A Ratio 1.05 MED E' 8.40 (< 7 cm/sec) MED A' 10.30 cm/s E'/MED E' Ratio 9.73 (>14) LAT E' 14.20 (<10 cm/sec) LAT A' 8.80 cm/s E/LAT E' Ratio 5.75 (>14) Aortic Valve AI PHT 523.00 ms AO Peak GR. 10.00 mmHg Mitral Valve MV E Max Josué. 82.00 (40-130 cm/s) MV A Velocity 78.00 (40-130 cm/s) E/A Ratio 1.05 MV Decel. Time 150.00 (160-240 ms) MV PHT 44.00 ms Pulmonary Valve PV Peak Velocity 49.00 (50-150 cm/s) Tricuspid Valve TR P. Velocity 244.00 cm/s RAP Estimate 10.00 mmHg RVSP 33.80 mmHg Left Ventricle Left atrium is normal size, left ventricle is normal size, there is no concentric left ventricular hypertrophy, visually estimated ejection fraction 55% with no regional wall motion abnormality, diastolic parameters are within normal range. Right Ventricle Right atrium and right ventricle are normal size and contractility. Aortic Valve Aortic valve is minimally thickened and fibrosed, there is no aortic stenosis, there is mild aortic insufficiency. Mitral Valve Mitral valve is grossly normal, there is trace mitral regurgitation. Tricuspid Valve Tricuspid grossly normal, there is trace tricuspid regurgitation, tricuspid regurgitation jet velocity is inadequate for calculation of the right ventricular systolic pressure. Pulmonic Valve Pulmonic valve is poorly visualized. Great Vessels Aortic root is normal size. Pericardium No significant pericardial effusion noted. Conclusion 1. Normal left ventricular size, preserved left ventricular systolic function, visually estimated ejection fraction 55% with no regional wall motion abnormality, diastolic parameters are within normal range. 2. Thickened and calcified aortic valve without aortic stenosis, there is mild aortic insufficiency. 3. Trace mitral and tricuspid regurgitation. 4. No significant pericardial effusion noted. Electronically signed by : Christiano Hickey, 07/13/2020 19:00:15
== END ==
PROVIDERS: PCP Family Medicine; Visit Provider Internal Medicine Cardiovascular Disease
DX: R01.1 Cardiac murmur, unspecified (principal); I35.1 Nonrheumatic aortic (valve) insufficiency; I25.10 Atherosclerotic heart disease of native coronary artery without angina pectoris; I11.9 Hypertensive heart disease without heart failure; E78.49 Other hyperlipidemia
CPT/HCPCS: 93306; 93880

== ENCOUNTER → 2020-11-03 14:42 | Outpatient (CLI) | payer OTHER, SELFPAY | PROVIDERS: PCP Family Medicine; Visit Provider Nurse Practitioner Family | DX: I20.9 Angina pectoris, unspecified (principal); R00.2 Palpitations; R01.1 Cardiac murmur, unspecified; I35.1 Nonrheumatic aortic (valve) insufficiency; I11.9 Hypertensive heart disease without heart failure; E78.5 Hyperlipidemia, unspecified; Z72.0 Tobacco use | CPT/HCPCS: 93270 ==

== ENCOUNTER → 2020-11-05 08:09 | Outpatient (CLI) | payer OTHER, SELFPAY ==
--- NOTE | 2020-11-05 08:09 | CA_ITS ---
APPROVED REPORT Exam: Exercise Treadmill Technologist: Yoana Sheikh, Ht: 5 ft 5 in Wt: 188 lbs BSA: 1.93 m2 HR: 69 bpm BP: 138/69 mmHg Rhythm: NSR Medical History Medical History: HTN, Hyperlipidemia Medications: Levothyroxine,,,,, Aspirin,,,,, Metoprolol,,,,, CloPIdogrel,,,,, Trazodone,,,,, AtorvaASTATIN,,,,, AmlodPINE,,,,, Isisorbide,,,,, MonONITRATE,,,,, PantoprazLE,,,,, VenlaDFAXINE,,,,, Allergies: SULFA Cardiac Risk Factors: HTN, Hyperlipidemia, FHX of CAD, Smoking Stress Test Details Test: [place] HR Resting HR: 86 bpm Max Heart Rate (APMHR): 170 bpm Max HR Achieved: 152 bpm Target HR (85% APMHR): 144 bpm % of APMHR: 89 Recovery HR: 104 bpm BP Resting BP: 117.0/74.0 mmHg Max BP: 138.0/69.0 mmHg Recovery BP: 169.0/79.0 mmHg ECG Resting ECG: NSR Clinical Reason for Termination: Dyspnea Leg Pain, Completed protocol, Maximal effort, ST changes Exercise duration: 09:01 min Highest Stage Achieved: Exercise capacity: 10.1 METs Stress ECG Conclusion PATIENT EXERCISED FOR 9 MINUTES ON [place] PROTOCOL WITH MAX HEART RATE 152 BPM. MAX BP 169/79. METS = 10.1. TEST STOPPED DUE TO SOA AND LEG PAIN. NO CP. PAC'S,PVC'S WITH RARE COUPLET IN RECOVERY. <1.5MM ST SEGMENT DEPRESSION(UPSLOPING)DURING STRESS THAT RESOLVED QUICKLY IN RECOVERY. Normal exercise treadmill stress test Test Summary REST . . . . . . . Sitting REST . . . . . . . Standing REST 03:44 0.0 1.2 86 . 117/ 74 . . Stage 1 01:00 10.0 1.7 107 . . . . Stage 1 02:00 10.0 1.7 113 . . . . Stage 1 03:00 10.0 1.7 109 . 122/ 78 . . Stage 2 01:00 12.0 2.5 120 . . . . Stage 2 02:00 12.0 2.5 126 . . . . Stage 2 03:00 12.0 2.5 129 . 131/ 82 . . Stage 3 01:00 14.0 3.4 136 . . . . Stage 3 02:00 14.0 3.4 145 . . . . Stage 3 03:00 14.0 3.4 150 . . . . Stage 4 00:01 16.0 4.2 150 . . . Stop exercise at 09:01 RECOVERY 01:00 0.0 0.0 129 . . . . RECOVERY 02:00 0.0 0.0 100 . . . . RECOVERY 03:00 0.0 0.0 90 . . . . RECOVERY 04:00 0.0 0.0 89 . . . . RECOVERY 05:00 0.0 0.0 89 . . . . RECOVERY 05:24 0.0 0.0 91 . 128/ 70 . . Electronically signed by : Christiano Hickey MD 11/05/2020 10:06:32
== END ==
PROVIDERS: PCP Family Medicine; Visit Provider Nurse Practitioner Family
DX: I25.10 Atherosclerotic heart disease of native coronary artery without angina pectoris (principal); R01.1 Cardiac murmur, unspecified; I35.1 Nonrheumatic aortic (valve) insufficiency; I11.9 Hypertensive heart disease without heart failure; E78.5 Hyperlipidemia, unspecified; F17.200 Nicotine dependence, unspecified, uncomplicated
CPT/HCPCS: 93017

== ENCOUNTER → 2021-06-03 11:44 | Outpatient (CLI) | payer OTHER, SELFPAY ==
--- NOTE | 2021-06-03 | CA_ITS ---
APPROVED REPORT Exam: Pharmacologic Technologist: Clari Rangel, Ht: 5 ft 5 in Wt: 191 lbs BSA: 1.94 m2 HR: 86 bpm BP: 128/75 mmHg Rhythm: NSR Medical History Medications: Amlodipine,,,,, Isosorbide,,,,, Aspirin,,,,, Metoprolol,,,,, Trazadone,,,,, Pantoprazole,,,,, Atorvastatin,,,,, CloPIdogrel,,,,, MonONITRATE,,,,, VenlaDFAXINE,,,,, Allergies: SULFA Cardiac Risk Factors: Smoking Stress Test Details Test: LEXISCAN HR Resting HR: 80 bpm Max Heart Rate (APMHR): 169 bpm Max HR Achieved: 97 bpm Target HR (85% APMHR): 144 bpm % of APMHR: 57 Recovery HR: 88 bpm BP Resting BP: 128/75 mmHg Max BP: 151/85 mmHg Recovery BP: 137.0/73.0 mmHg ECG Resting ECG: NSR Clinical Reason for Termination: Completed Protocol Exercise duration: 04:02 min Highest Stage Achieved: Exercise capacity: 1.0 METs Stress ECG Conclusion <1.[address] SEGMENT CHANGES. NON-DIAGNOSTIC Test Summary REST 04:11 . . 80 . 128/ 75 . . Stage 1 01:00 . . 90 . . . . Stage 2 01:00 . . 94 . . . . Stage 3 01:00 . . 92 . . . . Stage 4 01:00 . . 86 . 144/ 73 . . Stage 4 01:02 . . 87 . 144/ 73 . Stop exercise at 04:02 RECOVERY 01:00 . . 86 . . . . RECOVERY 02:00 . . 85 . . . . RECOVERY 02:30 . . 88 . . . . Electronically signed by : Christiano Hickey MD 06/03/2021 16:32:42
--- NOTE | 2021-06-03 11:48 | NM_ITS ---
APPROVED REPORT Exam: Nuclear Stress Test Indication: HX NC., HTN, HYPERLIPIDEMIA, TOB USE, FM HX., SOB, PALPITATIONS, ABN EKG Patient Location: Outpatient Stress Tech: Clari Rangel RI Tech:Zandra BARBARA Leon RT (R)(N)(M) Ht: 5 ft 5 in Wt: 192 lbs HR: 96 bpm BP: 120/75 mmHg BSA: 1.94 m2 BMI: 31.9 History: HX NC., HTN, HYPERLIPIDEMIA, TOB USE, FM HX., SOB, PALPITATIONS, ABN EKG Procedure: Patient received a 0.4 mg of intravenous Lexiscan, resting heart rate 96 bpm, resting blood pressure 120/75 mmHg, with Lexiscan maximum heart rate achived was 93 bpm which is Less than 85 % of the maximum predicted heart rate and blood pressure was 150/88 mmHg. With Lexiscan, patient denied any complaint of chest pain. Electrocardiogram Resting electrocardiogram shows sinus rhythm, with Lexiscan there is less than 1.[address] segment depression noted from the baseline EKG. The EKG portion of the Lexiscan is nondiagnostic. Cardiac Stress and Resting SPECT Images: Cardiac Stress and Resting SPECT images were obtained using technetium 99m Myoview 28.3 mCi stress and 10.20 mCi at rest. Gated SPECT for analysis of segmental wall motion and calculation of the ejection fraction also done. Cardiac stress and rest SPECT images show mild fixed defect in the anterior wall with normal contractility gated SPECT is likely secondary to soft tissue attenuation, no reversible ischemia seen, computer derived ejection fraction is 59% with no regional wall motion abnormality, right ventricle is normal size and contractility. Conclusion: 1. The EKG portion of the Lexiscan is nondiagnostic. 2. No scintigraphic evidence of reversible ischemia seen, computer derived ejection fraction 59% with no regional wall motion abnormality, right ventricle is normal size and contractility. 3. Likely normal Lexiscan Myoview study. Electronically signed by : Christiano Hickey MD 06/03/2021 16:34:48
== END ==
PROVIDERS: PCP Family Medicine; Visit Provider Nurse Practitioner Family
DX: R06.02 Shortness of breath (principal); R00.2 Palpitations; I25.10 Atherosclerotic heart disease of native coronary artery without angina pectoris; I11.9 Hypertensive heart disease without heart failure; I35.1 Nonrheumatic aortic (valve) insufficiency; I44.0 Atrioventricular block, first degree; E78.2 Mixed hyperlipidemia; K21.9 Gastro-esophageal reflux disease without esophagitis; R93.1 Abnormal findings on diagnostic imaging of heart and coronary circulation; R94.31 Abnormal electrocardiogram [ECG] [EKG]; F17.200 Nicotine dependence, unspecified, uncomplicated
CPT/HCPCS: 78452; 93017; A9502; J2785